=== PATIENT | male | born 1990 | race Caucasian/White ===

== ENCOUNTER 2018-01-18 17:06 | Emergency (ER) | payer SELFPAY ==
[~2018-01-18] VITALS: Ht 175.3 cm; Wt 118.0 kg
[2018-01-18 17:25] VITALS: Ht 175.3 cm; Wt 118.0 kg
[2018-01-18 20:41] VITALS: BP 123/82
== END 2018-01-18 20:41 | disposition home or self-care (01) ==
LOC: ED 17:06
DX: M25.512 Pain in left shoulder (principal); V49.9XXA Car occupant (driver) (passenger) injured in unspecified traffic accident, initial encounter; Y93.89 Activity, other specified; Y92.89 Other specified places as the place of occurrence of the external cause; Y99.8 Other external cause status